=== PATIENT | female | born 1950 | race Caucasian/White ===

== ENCOUNTER 2016-07-21 08:54 | Inpatient (IN) | payer OTHER ==
[2016-07-21] MEDS ORDERED: BUPIVACAINE 0.5% 30 ML SDV ONE (09:33)
[2016-07-21] MEDS ORDERED: LIDOCAINE 1% 5 ML SDV ONE (09:52)
--- NOTE | 2016-07-21 10:09 | CPEKG ---
Heart Rate: 72 RR Interval: 833 P-R Interval: 216 QRSD Interval: 92 QT Interval: 412 QTC Interval: 451 P [place]: 10 QRS [place]: -10 T Wave [place]: 20 EKG Severity - ABNORMAL ECG - EKG Impression: SINUS RHYTHM EKG Impression: PROBABLE LEFT ATRIAL ABNORMALITY EKG Impression: LEFT VENTRICULAR HYPERTROPHY Preliminary Awaiting MD Review
[2016-07-21] MEDS ORDERED: MIDAZOLAM 2 MG/2 ML VIAL ONE (10:12)
[2016-07-21] MEDS ORDERED: LIDOCAINE 1% 30 ML SDV ONE (10:15)
[2016-07-21] MEDS ORDERED: SODIUM BICARBONATE 10 MEQ/10 ML SYR IVP ONE (10:15)
[2016-07-21] MEDS ORDERED: LR 1,000 ML IV ONE (10:23)
[2016-07-21] MEDS ORDERED: LIDOCAINE 1% 5 ML SDV ID PRN (10:23)
[2016-07-21] MEDS ORDERED: ceFAZolin 3 GM in D5W 100 ML IV ONE (10:30)
[2016-07-21] MEDS ORDERED: PROPOFOL 200 MG/20 ML VIAL ONE ×4 (10:33→12:00)
[2016-07-21] MEDS ORDERED: LIDOCAINE 2% 5 ML SDV ONE ×2 (10:34→12:00)
[2016-07-21] MEDS ORDERED: ENALAPRILAT DIHYDRATE 1.25 MG/ML VIAL ONE ×2 (11:06→12:52)
[2016-07-21] MEDS ORDERED: hydrALAZINE 20 MG/ML VIAL ONE ×2 (13:34→15:36)
[2016-07-21] MEDS ORDERED: hydrALAZINE 20 MG/ML VIAL IVP PRN (13:53)
[2016-07-21] MEDS ORDERED: ENALAPRILAT DIHYDRATE 1.25 MG/ML VIAL IVP ONE (14:00)
--- NOTE | 2016-07-21 15:21 | PDGENHP ---
History and Physical - Chief Complaint Acute headache - History of Present Illness primary care provider: Dr. Vaughn Primary surgeon: Dr. Mendez Reason for consultation: Hypertensive crisis Date of consultation: 07/21/2016 HPI: 65-year-old female presenting with acute headache characterized as a dull ache located globally with associated chest discomfort located at the surgical sites with onset of symptoms around 1:30 p.m. on the day of presentation. Patient reports that the symptoms began after she awakened from surgery and duration has been persistent thereafter. Prior to her surgery, the patient reports that she had otherwise been feeling well and was without headache. She otherwise denies any overt chest pain or shortness of breath. It should be noted that prior to her surgery, her systolic blood pressure was around 190 and she did not undergo general anesthesia but rather underwent conscious sedation. I was called postoperatively when the patient was in the PACU with systolic blood pressure greater than 210. the patient reports that she has otherwise been taking all of her home medications as scheduled with the exception of holding her hydrochlorothiazide on the morning of presentation. The patient was seen in the outpatient surgery office on the day prior to presentation and her systolic blood pressure was 140. History Information - Allergies/Home Medication List Allergies/Adverse Reactions: acyclovir Allergy (Verified 07/21/16 10:43) Other-Enter Comments amoxicillin trihydrate [From Augmentin] Allergy (Verified 07/21/16 10:43) Other-Enter Comments aspirin Allergy (Verified 07/21/16 10:44) Vomiting cephalexin monohydrate [From Keflex] Allergy (Verified 07/21/16 10:44) Other-Enter Comments chamomile flower Allergy (Verified 07/21/16 10:46) Other-Enter Comments ciprofloxacin [From Cipro] Allergy (Verified 07/21/16 10:44) Vomiting ciprofloxacin HCl [From Cipro] Allergy (Verified 07/21/16 10:44) Vomiting diphenhydramine HCl [From Benadryl] Allergy (Verified 07/21/16 10:26) Other-Enter Comments iodine Allergy (Verified 07/21/16 10:47) Hives iodoform Allergy (Verified 07/21/16 10:47) Hives melatonin Allergy (Verified 07/21/16 10:49) Other-Enter Comments metronidazole [From Flagyl] Allergy (Verified 07/21/16 10:49) Other-Enter Comments moxifloxacin HCl [From Avelox] Allergy (Verified 07/21/16 10:49) Other-Enter Comments potassium clavulanate [From Augmentin] Allergy (Verified 07/21/16 10:49) Other-Enter Comments potassium iodide Allergy (Verified 07/21/16 10:47) Hives povidone-iodine Allergy (Verified 07/21/16 10:47) Hives pyridoxine Allergy (Verified 07/21/16 10:49) Other-Enter Comments sodium iodide Allergy (Verified 07/21/16 10:47) Hives Sulfa (Sulfonamide Antibiotics) Allergy (Verified 07/21/16 10:49) Hives valerian Allergy (Verified 07/21/16 10:49) Other-Enter Comments CALCIUM PHOSPHATE Allergy (Uncoded 07/21/16 10:49) Other-Enter Comments Home Medications: ASPIRIN 07/13/16 [Last Taken 07/14/16] Herbal Drugs 07/13/16 [Last Taken 07/14/16] Hydrochlorothiazide 07/13/16 [Last Taken 07/14/16] Levoxyl 07/13/16 [Last Taken 07/21/16 05:15] Lisinopril 07/13/16 [Last Taken 07/21/16 05:15] Protonix 07/13/16 [Last Taken 07/21/16 05:15] Toprol Xl 25 mg (*) 07/13/16 [Last Taken 07/20/16] Tylenol 07/13/16 [Last Taken 07/20/16] Stool Softener Tablet 07/20/16 [Last Taken 07/18/16] I have personally reviewed and updated: family history, medical history, social history, surgical history - Past Medical History atrial fibrillation ( currently on dolores blocking agents with aspirin for CVA prophylaxis), hypertension Additional medical history: hypothyroidism, morbid obesity - Surgical History Additional surgical history: breast and soft tissue surgery by Dr. Mendez on the date of this exam - Family History Additional family history: father with CVA and [place] in his 60s - Social History Smoking Status: Former smoker Alcohol Use: Rarely Drug Use: None Additional social history: independent in her ADLs Review of Systems ROS: 10pt was reviewed & negative except for what was stated in HPI & below Skin: Reports: other ( soft tissue pain at the surgical site) Neurological: Reports: headache (ite) Physical Exam Constitutional: no apparent distress, appears nourished, obese, uncomfortable Eyes: PERRL, anicteric sclera, EOMI Ears, Nose, Mouth, Throat: moist mucous membranes, hearing normal, ears appear normal, no oral mucosal ulcers Cardiovascular: regular rate and rhythym, no murmur, rub, or gallop, edema ( 1+ bilateral lower extremity), No irregularly irregular, No tachycardia Respiratory: no respiratory distress, no rales or rhonchi, clear to auscultation Gastrointestinal: soft, non-tender abdomen, no palpable masses, No normoactive bowel sounds ( hypoactive bowel sounds), No guarding Skin: other ( bandage over the surgical sites, no evidence of bleeding or surrounding erythema) Neurologic: AAOx3, sensation intact bilaterally, No weakness, No facial droop Psychiatric: interacting appropriately, not anxious, not encephalopathic, thought process linear Lab Data & Imaging Review Visualized and Interpreted EKG results: Yes EKG Interpretation: Positive for: other ( normal sinus rhythm with LVH) Assessment & Plan Assessment: 65-year-old female presents for elective breast and soft tissue surgery, complicated by hypertensive crisis Plan: 1. Hypertensive crisis. Acute, new problem this provider, no further workup indicated. Evidenced by systolic blood pressure greater than 210 with associated symptom including headache, no evidence of end-organ failure - patient refractory to enalapril IV and 5mg hydralazine IV in PACU - that said, patient's systolic blood pressures should be more adequately controlled to prevent bleeding complications or intracranial hemorrhage - no head CT indicated at this time unless the patient begins developing symptoms or worsening of headache - discussed with Dr. Mendez, would recommend initiating IV hydralazine as needed for systolic blood pressures greater than 180 in the setting of ongoing headache , utilize 10 mg IV at this time - does not require follow-up EKG, chest x-ray, troponin, unless the patient begins developing cardiopulmonary symptoms - does not require treatment for hypertensive emergency and she does not have any evidence of end-organ failure does not require nicardipine drip or ICU level monitoring - most likely cause is holding her home antihypertensive medications this morning as well as fluctuation in her chronic hypertension -recommended initiating home dosage of hydrochlorothiazide at this time so that her systolic blood pressure will down trended over the next several hours -recommend reconciling her home medications so that her metoprolol is given this evening and lisinopril given tomorrow 2. Atrial fibrillation. Unclear type, currently on dolores blocking agent and aspirin for CVA prevention - hold on initiating aspirin until tomorrow or when surgery feels safe doing so - continue on beta-kirit Diet. Regular diet Prophylaxis. Mod risk patient, ambulating, wear SCDs, hold pharm given surg Code. Full Disposition. Anticipated discharge is 07/22/2016, pending stabilization and no further complications of conditions outlined above. Dr. Mendez from General surgery will remain primary on this patient.
[2016-07-21] MEDS ORDERED: ONDANSETRON 4 MG/2 ML VIAL IVP PRN (15:39)
[2016-07-21] MEDS ORDERED: ACETAMINOPHEN 325 MG TAB PO PRN (15:39)
[2016-07-21] MEDS ORDERED: ONDANSETRON DISINTEGRATING 4 MG TAB PO PRN (15:39)
[2016-07-21] MEDS ORDERED: traMADol 50 MG TAB PO PRN (15:57)
--- NOTE | 2016-07-21 16:04 | PDGENHP ---
History and Physical History and Physical: # [id number] Admit note dictated S MD Vanessa, FACS
--- NOTE | 2016-07-21 17:06 | GOP ---
[f rep st] OPERATIVE REPORT DATE OF OPERATION: 07/21/2016 SURGEON: Reg Mendez MD ANESTHESIA: Intravenous sedation, Arthur Castillo MD PREOPERATIVE DIAGNOSIS: Multiple soft tissue tumors, left anterior chest wall, right anterior chest wall, right upper arm posterior. POSTOPERATIVE DIAGNOSIS: PROCEDURE PERFORMED: 1. Excision of soft tissue tumor x2 left upper anterior chest wall, less than 3 cm, superficial. 2. Excision of right anterior chest wall soft tissue tumor, less than 3 cm, superficial. 3. Excision of right upper posterior arm soft tissue tumor x 2, less than 3 cm , deep. FINDINGS: Benign-appearing soft tissue tumors consistent with lipomata excised and individually submitted for permanent section. Moderate poorly-controlled intraoperative hypertension and morbid obesity as pre-existing risk factors. ESTIMATED BLOOD LOSS: 10 mL. DESCRIPTION OF PROCEDURE: After informed consent was obtained, the patient was brought to the operating room, placed under intravenous sedation. The chest wall and arm were prepped and draped in usual fashion. Before proceeding, a time-out identification of the patient was performed. A mixture of 1% lidocaine plain and 0.5% Marcaine were used to infiltrate each site. The patient had a lipoma in the left anterior chest wall just below a previously placed tattoo. This was excised through a 2 cm transverse incision and submitted for permanent section. Hemostasis was secured with cautery. Subcutaneous tissues were closed with 3-0 Monocryl suture. Skin was closed with 4-0 Monocryl suture in subcuticular fashion. Slightly below and medial to this, another soft tissue tumor was noted over the medial aspect of the breast, but was not part of the breast tissue. This was excised through a curvilinear circumareolar oriented incision approximately 2 cm in length after infiltrating the skin and subcutaneous tissues with local anesthesia. This was also consistent with a lipoma and was submitted for permanent section. The right upper inner chest wall nodule also overlying the breast was excised through a 1.5 cm incision after infiltrating with local anesthesia. Both of these incisions were closed in a similar fashion with 3-0 Monocryl and 4-0 Monocryl suture in subcuticular fashion. The right posterior upper arm lesions were somewhat larger in size and were excised through 2 individual incisions. Both were somewhat deep and close to the triceps muscle, but not invading the muscle. Each of these was excised through a separate incision approximately 2.5 cm in length and submitted for permanent section. These were labeled proximal and distal for future identification. Hemostasis was secured with cautery. Subcutaneous tissues were closed with 3-0 Monocryl suture. Skin was closed with 4-0 Monocryl suture in a subcuticular fashion. Mastisol, Steri-Strips, and sterile dressings were applied to all incisions. All needle, sponge, instrument count were correct. COMPLICATIONS: None. /[id number]/MODL MTDD
--- NOTE | 2016-07-21 17:41 | GHP ---
[f rep st] HISTORY AND PHYSICAL DATE OF ADMISSION: 07/21/2016 CHIEF COMPLAINT: Postoperative hypertension with poor control. HISTORY OF PRESENT ILLNESS: The patient is a 65-year-old female who was brought to the hospital to y for elective excision of multiple subcutaneous lipomata. She presented with increased blood pressu re and this persisted throughout the surgery and into the recovery room, and actually increased in th e postoperative period until her systolic pressure was consistently over 200, and her diastolic press ure was consistently over 100, despite receiving intravenous enalapril and hydralazine, as administer ed by Dr. Castillo, the anesthesiologist. Internal Medicine consultation was requested in the recovery room and recommendations were made for hospital admission and control of blood pressure. PAST MEDICAL HISTORY: Significant for hypothyroidism, morbid obesity, hypertension, paroxysmal atria l fibrillation. MEDICATIONS: Chronic medications include enteric-coated aspirin, hydrochlorothiazide 25 mg per day, lisinopril 40 mg per day, Toprol-XL 25 mg per day, Levoxyl, unknown dose; Protonix, unknown dose. SOCIAL HISTORY: Patient is a . 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 FAMILY HISTORY: Father had a stroke and heart attack in his 60s. HABITS: She is a former smoker. Denies alcohol use or drug use. REVIEW OF SYSTEMS: Patient reports a mild headache. She denies chest pain. She has mild surgical s ite pain, particularly in the right posterior arm. PHYSICAL EXAMINATION: VITAL SIGNS: Blood pressure was 210/116 when I examined her in the recovery a dewayne. She was sitting in a chair watching TV and reported mild headache. HEART: Regular in rate and rhythm without murmurs. LUNGS: Clear to auscultation. She had surgical dressing over her left ant erior chest wall, right anterior chest wall and right posterior upper arm. VASCULAR: Radial and ped al pulses were +2 and symmetrical. ABDOMEN: Soft, and nontender. IMPRESSION: 1. Status post excision of multiple benign-appearing soft tissue tumors consistent with lipomata und er intravenous sedation. 2. Poorly controlled hypertension. 3. Morbid obesity. 4. History of paroxysmal atrial fibrillation, currently in sinus rhythm. RECOMMENDATIONS: Dr. Gonzáles's consult is appreciated. The patient will be admitted for observation and restarting her blood pressure medications with p.r.n. IV hydralazine for further control of her b lood pressure. I will increase her Toprol-XL 25-50 mg per day, restart her lisinopril 40 mg per day, and hydrochlorothiazide 25 mg per day. I also recommended starting enteric-coated aspirin 81 mg thi s evening as she is at moderate to high risk for venous thromboembolism, and if she stays longer than 24 hours, we will institute Lovenox 40 mg subcu daily for VTE prophylaxis. She has been using SCD p umps both pre, intra, and postoperatively, and these will be continued. The patient will receive Ult kathryn as needed for surgical discomfort, which at this time is mild. /[id number]/MODL
[2016-07-21] MEDS: HYDROCHLOROTHIAZIDE 25 MG TAB PO SCH (17:44)
[2016-07-21] MEDS ORDERED: NON-FORMULARY NEW DRUG (Cholecalciferol (Vitamin D3) [Vitamin D3] 5,000 UNIT) PO SCH (18:00)
[2016-07-21] MEDS: LISINOPRIL 40 MG TAB PO SCH (18:01)
[2016-07-21] MEDS: METOPROLOL SUCCINATE XR 50 MG TAB PO SCH (18:06)
[2016-07-21] MEDS: hydrALAZINE 20 MG/ML VIAL IVP PRN ×2 (18:26→23:43)
[2016-07-21] MEDS: ASPIRIN EC 81 MG TAB PO SCH (20:30)
[2016-07-21] MEDS: DOCUSATE SODIUM 100 MG CAP PO SCH (20:31)
[2016-07-21] MEDS: ACETAMINOPHEN 500 MG TAB PO PRN (23:41)
[2016-07-22 05:23] LABS: ANION GAP 10 mEq/L (8-16); CALCIUM 9.7 mg/dL (8.5-10.4); CARBON DIOXIDE 25 mEq/l (22-31); CHLORIDE 96 mEq/L (97-110); CREATININE 0.5 mg/dL (0.6-1.0); GLOMERULAR FILTRATION RATE > 60; GLUCOSE 107 mg/dL (70-100); POTASSIUM 3.9 mEq/L (3.5-5.2); SODIUM 131 mEq/L (134-144)
[2016-07-22] MEDS: LEVOTHYROXINE 137 MCG TAB PO SCH (05:37)
[2016-07-22] MEDS: LISINOPRIL 40 MG TAB PO SCH (05:37)
[2016-07-22] MEDS ORDERED: PANTOPRAZOLE SODIUM 40 MG TAB PO ONE (05:42)
[2016-07-22] MEDS: ACETAMINOPHEN 500 MG TAB PO PRN ×3 (05:43→19:29)
[2016-07-22] MEDS: PANTOPRAZOLE SODIUM 40 MG TAB PO SCH (05:44)
[2016-07-22] MEDS: HYDROCHLOROTHIAZIDE 25 MG TAB PO SCH ×2 (08:08→11:04)
[2016-07-22] MEDS: METOPROLOL SUCCINATE XR 50 MG TAB PO SCH (08:08)
[2016-07-22] MEDS: ENOXAPARIN 40 MG/0.4 ML SYR SC SCH (08:09)
[2016-07-22] MEDS: ASPIRIN EC 81 MG TAB PO SCH (08:10)
[2016-07-22] MEDS ORDERED: Herbals/Supplements -Info Only PO SCH (09:00)
[2016-07-22] MEDS ORDERED: traMADol 50 MG TAB PO PRN (09:53)
--- NOTE | 2016-07-22 10:12 | SOAPPROG ---
SOAP Progress Note Assessment/Plan: Assessment:s/p excision multiple benign subcutaneous lesions c/w lipomata-path pending surgical sites are uncomplicated and she was scheduled as an outpatient but required admission for observation following surgery due to poorly controlled hypertension. Plan:management of hypertension per the Hospitalist Service patient remains stable for discharge from a surgical viewpoint. James Mendez MD, FACS 07/22/16 10:12 Subjective: c/o severe headache/vomited this AM Objective: Vital Signs Temp Pulse Resp BP Pulse Ox 36.3 C 61 18 192/110 H 94 07/22/16 07:59 07/22/16 07:59 07/22/16 07:59 07/22/16 07:59 07/22/16 07:59 Laboratory Results 07/22/16 04:55 07/21/16 07/22/16 07/23/16 05:59 05:59 05:59 Intake Total 1700 Output Total 10 Balance 1690 Physical Exam - Physical Exam General Appearance: mild distress Neck: non-tender, full range of motion Respiratory: lungs clear Cardiac/Chest: regular rate, rhythm Skin: other (mild bruising right posterior arm/incisions o.k./anterior chest wall incisions o.k.) Neuro/Psych: alert, oriented x 3 ICD10 Worksheet Patient Problems: Problems Problem Status Diagnosed Head ache Acute Hypertension Acute Hypothyroidism Acute Lipoma of anterior chest wall Acute Lipoma of arm Acute Obesity Acute - ICD10 Problem Qualifiers (1) Lipoma of anterior chest wall (2) Lipoma of arm Qualifiers: Laterality: right Qualified Description: Lipoma of right upper extremity Qualifier Code(s): (D17.21) Benign lipomatous neoplasm of skin and subcutaneous tissue of right arm (3) Hypertension (4) Obesity (5) Hypothyroidism Qualifiers: Hypothyroidism type: unspecified Qualified Description: Hypothyroidism , unspecified type Qualifier Code(s): (E03.9) Hypothyroidism, unspecified (6) Head ache Qualifiers: Headache type: unspecified Headache chronicity pattern: acute headache Intractability: intractable Qualified Description: Acute intractable headache, unspecified headache type Qualifier Code(s): (R51) Headache
[2016-07-22] MEDS: CHOLECALCIFEROL VIT D3 1,000 UNITS TAB PO SCH ×2 (11:03→18:05)
--- NOTE | 2016-07-22 12:20 | CT ---
CT Brain (Without Contrast) July 22, 2016 at 1143 Hours History: Headache. Comparison: None. Technique: Axial computed tomographic images of the brain without contrast. Dose reduction techniques were utilized. Findings: Ventricles, cisterns, and sulci are normal without atrophy or mass effect. No hydrocephalus , midline shift/herniation, or epidural/subdural hematomas. No acute intraparenchymal hemorrhage or m ass effect. Cerebrovascular atherosclerosis. Hypodensities in the white matter of bilateral cerebral hemispheres. Bone windows demonstrate no displaced fractures. There is 2 cm of mucosal thickening in ferior right maxillary sinus. Impressions: 1. Mild right maxillary sinusitis. 2. No acute hemorrhage, hydrocephalus, or mass effect. 3. Cerebrovascular atherosclerosis. 4. No definite acute infarct. 5. Moderate microvascular ischemic gliosis. 6. Consider MRI of the brain without and with contrast enhancement, if there is continued clinical co ncern.
--- NOTE | 2016-07-22 12:38 | US ---
Ultrasound Abdomen Retroperitoneum, Complete Clinical Indications: Hypertension. Findings: The right kidney measures 12.2 x 5.7 x 4 cm. The left kidney measures 13.3 x 5.7 x 5.8 cm . Both kidneys demonstrate no hydronephrosis, definite shadowing calculi, or perinephric fluid. Righ t renal cortical thickness 0.7 cm and left renal cortical thickness 1.3 cm. Images of the bladder demonstrate patent bilateral ureteral jets with color flow imaging. Prevoid tan dder volume 80 mL. Patient unable to void at this time. No shadowing bladder calculi. Impression: 1. No hydronephrosis. 2. Bladder volume 80 mL.
--- NOTE | 2016-07-22 15:13 | HOSPPROG ---
Hospitalist Progress Note Assessment/Plan: 65-year-old female presents for elective breast and soft tissue surgery, complicated by hypertensive crisis. This is my 1st encounter with the patient, chart reviewed. Discussed patient with Dr. Mendez. Plan: 1. Hypertensive urgency. - Acute -systolic blood pressure greater than 190 with associated symptom including headache -CT head for headache and vomiting, negative - patient refractory to enalapril IV and 5mg hydralazine -start clonidine - discussed with Dr. Mendez, initiating clonidine - pt took her home antihypertensive medications the morning of surgery - cont home dosage antihypertensives -renal ultrasound, negative -continue supportive treatment 2. Atrial fibrillation. - currently on dolores blocking agent and aspirin for CVA prevention - hold on initiating aspirin until surgery feels safe doing so - continue on beta-kirit Diet. Regular diet Prophylaxis. Mod risk patient, ambulating, wear SCDs, hold pharm given surg Code. Full Disposition. Continue to treat patient's hypertension Supportive management Subjective: Up on the couch. Complains of headache with that 1 episode of vomiting this morning. Does not feel well at this point. Pain controlled. Objective: Vital Signs Temp Pulse Resp BP Pulse Ox 36.3 C 67 20 156/97 H 90 L 07/22/16 12:26 07/22/16 12:26 07/22/16 12:26 07/22/16 12:26 07/22/16 12:26 Laboratory Results 07/22/16 04:55 07/21/16 07/22/16 07/23/16 05:59 05:59 05:59 Intake Total 1700 Output Total 10 Balance 1690 - Physical Exam Constitutional: appears nourished, not in pain, obese Eyes: PERRL, anicteric sclera, EOMI Ears, Nose, Mouth, Throat: moist mucous membranes, hearing normal, ears appear normal Cardiovascular: regular rate and rhythym, No JVD, No edema Respiratory: no respiratory distress, no rales or rhonchi, reduced air movement Gastrointestinal: normoactive bowel sounds, No tenderness, No ascites Skin: warm, normal color, no rashes or abrasions Musculoskeletal: normal joint ROM, muscular tenderness, generalized weakness Neurologic: AAOx3 Psychiatric: interacting appropriately, not anxious, not encephalopathic ICD10 Worksheet Patient Problems: Problems Problem Status Diagnosed Head ache Acute Hypertension Acute Hypothyroidism Acute Lipoma of anterior chest wall Acute Lipoma of arm Acute Obesity Acute
[2016-07-22] MEDS ORDERED: METOPROLOL SUCCINATE XR 25 MG TAB PO SCH (18:00)
[2016-07-22] MEDS: DOCUSATE SODIUM 100 MG CAP PO SCH (20:31)
[2016-07-23] MEDS: LEVOTHYROXINE 137 MCG TAB PO SCH (05:59)
[2016-07-23] MEDS: PANTOPRAZOLE SODIUM 40 MG TAB PO SCH (07:40)
[2016-07-23] MEDS: ASPIRIN EC 81 MG TAB PO SCH (07:41)
[2016-07-23] MEDS: ACETAMINOPHEN 500 MG TAB PO PRN (07:42)
[2016-07-23] MEDS: ENOXAPARIN 40 MG/0.4 ML SYR SC SCH (07:51)
[2016-07-23] MEDS ORDERED: LISINOPRIL 40 MG TAB PO SCH (09:00)
[2016-07-23 11:51] VITALS: BP 127/73; PULSE 60; RESP 18; TEMP 97.4; O2SAT 95
--- NOTE | 2016-07-23 12:42 | PDIAF ---
- Diagnosis Diagnosis: HTN Code Status: Full Code - Medication Management Discharge Medications: Medications to Continue on Transfer Herbals/Supplements -Info Only 1 ea PO DAILY 07/13/16 [Last Taken 07/14/16] Hydrochlorothiazide [HCTZ (*)] 25 mg PO DAILY@12 07/13/16 [Last Taken 07/21/16] Levothyroxine [Synthroid 137 mcg (*)] 137 mcg PO DAILY06 07/13/16 [Last Taken 05:15] Lisinopril [Zestril 40 mg (*)] 40 mg PO DAILY 07/13/16 [Last Taken 07/21/16 05: 15] Pantoprazole Sodium [Protonix 40mg (*)] 40 mg PO DAILY 07/13/16 [Last Taken 05:15] Docusate Sodium [Colace 100 MG (*)] 200 mg PO HS 07/20/16 [Last Taken 07/18/16] Cholecalciferol (Vitamin D3) [Vitamin D3] 5,000 unit PO BID@07/21/16 [ Last Taken Unknown] Metoprolol Succinate 50 mg PO DAILY18 07/21/16 [Last Taken 07/20/16] traMADol [Ultram 50 mg (*)] 50 mg PO Q6 PRN 07/21/16 [Last Taken Unknown] Acetaminophen [Tylenol ES 500 mg (*)] 1,000 mg PO Q6HRS PRN #0 tab 07/23/16 [ Last Taken Unknown] Aspirin EC [Aspirin EC 81 mg (*)] 81 mg PO DAILY #0 tab 07/23/16 [Last Taken Unknown] clonIDINE [Catapres (*)] 0.1 mg PO BID #60 tab 07/23/16 [Last Taken Unknown] Discharge Medications: Refer to the Discharge Home Medication list for PRN reason. PICC Care - Routine: N/A - Orders Services needed: Registered Nurse - Follow Up Care Current Providers and Referrals: NERIS ORELLANA [Primary Care Provider] -
--- NOTE | 2016-07-23 12:51 | HOSPPROG ---
Hospitalist Progress Note Assessment/Plan: 65-year-old female presents for elective breast and soft tissue surgery, complicated by hypertensive crisis. Discussed patient with Dr. Mendez. Plan: 1. Hypertensive urgency. - Acute, resolved - systolic blood pressure was greater than 190 with associated symptom including headache - CT head for headache and vomiting, negative - patient refractory to enalapril IV and 5mg hydralazine - responding well to clonidine - discussed with Dr. Mendez - pt took her home antihypertensive medications the morning of surgery - hold home dosage of lisinopril - renal ultrasound, negative - will need outpatient evaluation and workup. Home health care RN to check patient's blood pressure at home. 2. Atrial fibrillation. - currently on dolores blocking agent and aspirin for CVA prevention - continue aspirin - continue on beta-kirit Diet. Regular diet Prophylaxis. Mod risk patient, ambulating, wear SCDs, Code. Full Disposition. Patient stable to be discharged home. Home health care RN to check patient's blood pressure on a daily basis. Follow-up with primary care physician on Sunday07/25/2016 I educated patient at length regarding blood pressure management and medications at home Encouraged home blood pressure checks Subjective: Feels better today. Concerned with blood pressure. No pain currently no nausea vomiting or headache. Objective: Vital Signs Temp Pulse Resp BP Pulse Ox 36.3 C 60 18 127/73 H 95 07/23/16 11:50 07/23/16 11:50 07/23/16 11:50 07/23/16 11:50 07/23/16 11:50 Laboratory Results 07/22/16 04:55 07/22/16 07/23/16 07/24/16 05:59 05:59 05:59 Intake Total 1700 Output Total 10 Balance 1690 - Physical Exam Constitutional: appears nourished, not in pain, obese Eyes: PERRL, anicteric sclera, EOMI Ears, Nose, Mouth, Throat: moist mucous membranes, hearing normal, ears appear normal Cardiovascular: No JVD, No tachycardia, No edema Respiratory: no respiratory distress, no rales or rhonchi, reduced air movement Gastrointestinal: No tenderness, No ascites, No guarding Skin: warm, normal color, other (ecchymosis) Musculoskeletal: no joint effusions, muscular tenderness, generalized weakness Neurologic: AAOx3 Psychiatric: interacting appropriately, not encephalopathic, thought process linear ICD10 Worksheet Patient Problems: Problems Problem Status Diagnosed Head ache Acute Hypertension Acute Hypothyroidism Acute Lipoma of anterior chest wall Acute Lipoma of arm Acute Obesity Acute
[2016-07-23] MEDS: HYDROCHLOROTHIAZIDE 25 MG TAB PO SCH (13:07)
[2016-07-23] MEDS: CHOLECALCIFEROL VIT D3 1,000 UNITS TAB PO SCH (13:08)
--- NOTE | 2016-07-23 14:04 | SOAPPROG ---
Downtime Inpatient Late Entry SOAP Note: Matilda feels better/BP 123/72 no more headache Surgical sites significant for bruising in the right upper posterior arm no hematoma Imp: s/p excision multiple lipomas morbid obesity HTN poor control anna-operatively: improved with Clonidine Rec: appreciate hospitalist care DC home FU my office for wound care I recommended she obtain a BP cuff for home monitoring.. James Mendez MD, FACS
== END 2016-07-23 15:21 | disposition home health service (06) | DRG 305 ==
LOC: FSGY 08:54 → F1N 15:48 → F3E 16:38 → OBSVTOIN 07-22 15:14
PROVIDERS: ADMIT Surgery; ATTEND Surgery
PROC: 0JBD3ZX Excision of Right Upper Arm Subcutaneous Tissue and Fascia, Percutaneous Approach, Diagnostic (ICD-10-PCS; principal; 2016-07-22)
PROC: 0JB63ZX Excision of Chest Subcutaneous Tissue and Fascia, Percutaneous Approach, Diagnostic (ICD-10-PCS; principal; 2016-07-22)
DX: I16.0 Hypertensive urgency (principal); D17.1 Benign lipomatous neoplasm of skin and subcutaneous tissue of trunk; D17.21 Benign lipomatous neoplasm of skin and subcutaneous tissue of right arm; I48.0 Paroxysmal atrial fibrillation; E03.9 Hypothyroidism, unspecified; Z87.891 Personal history of nicotine dependence; Z79.82 Long term (current) use of aspirin; E66.01 Morbid (severe) obesity due to excess calories
CPT/HCPCS: G0378; J0360; J0690; J1650; J2250; J2704